=== PATIENT | male | born 1990 | race Caucasian/White ===

== ENCOUNTER 2020-06-29 20:28 | Emergency (ER) | payer BC, SELFPAY ==
[~2020-06-29] VITALS: Ht 177.8 cm; Wt 135.7 kg
[2020-06-29 20:37] VITALS: Ht 177.8 cm; Wt 135.7 kg
[2020-06-29 21:58] VITALS: BP 148/97
== END 2020-06-29 21:58 | disposition home or self-care (01) ==
LOC: ED 20:28
DX: U07.1 COVID-19 (principal); B34.9 Viral infection, unspecified
CPT/HCPCS: U0003